=== PATIENT | female | born 1940 | race Caucasian/White ===

== ENCOUNTER → 2020-10-15 | Outpatient (CLI) | payer MEDICARE, OTHER | LOC: M.RAD 15:30 | PROVIDERS: ATTEND Nurse Practitioner Family | DX: M85.80 Other specified disorders of bone density and structure, unspecified site (principal); M81.0 Age-related osteoporosis without current pathological fracture; Z78.0 Asymptomatic menopausal state ==

== ENCOUNTER → 2020-11-30 | Outpatient (CLI) | payer MEDICARE, OTHER ==
[2020-11-30 07:26] LABS: INR 1.2; PROTIME 12.8 Seconds (9.20-11.50)
== END ==
LOC: M.LAB 05:28
PROVIDERS: ATTEND Anesthesiology
DX: R79.1 Abnormal coagulation profile (principal)

== ENCOUNTER 2021-01-14 17:55 | Inpatient (IN) | payer MEDICARE, OTHER ==
[~2021-01-14] VITALS: Ht 162.6 cm; Wt 119.6 kg
[2021-01-14 18:04] VITALS: BP 155/81
[2021-01-14] MEDS ORDERED: SORINE 80 MG TA80 MG PO (18:09)
[2021-01-14] MEDS ORDERED: WARFARIN SODIUM5 MG PO (18:10)
[2021-01-14] MEDS ORDERED: DEPRESSION MED (18:10)
[2021-01-14 18:47] LABS: ABSOLUTE BASOPHILS 0.1 thou/uL (0.0-0.2); ABSOLUTE EOSINOPHILS 0.1 thou/uL (0.0-0.7); ABSOLUTE LYMPHOCYTES 1.2 thou/uL (0.8-5.3); ABSOLUTE NEUTROPHILS 11.8 thou/uL (1.6-8.1); BASOPHILS 0.4 %; EOSINOPHILS 0.8 %; HEMATOCRIT 36.9 % (37.0-47.0); HEMOGLOBIN 12.6 gm/dL (12.0-15.0); LYMPHOCYTES 8.7 %; MCH 34.5 pg (26.0-34.0); MCV 101.5 fL (80.0-100.0); MONOCYTES 7.1 %; MPV 7.5 fl. (7.2-11.1); NUCLEATED RBCS 0 /100WBC; PLATELET COUNT* 200 thou/uL (150-400); RBC 3.64 mil/uL (4.20-5.00); WBC 14.2 thou/uL (4.0-11.0)
[2021-01-14 18:53] LABS: CALCIUM 8.4 mg/dL (8.5-10.1); CREATININE 0.7 mg/dL (0.6-1.3)
[2021-01-14 18:58] LABS: ALBUMIN 2.8 g/dL (3.4-5.0); TOTAL BILIRUBIN 0.9 mg/dL (<0.1-1.0); TOTAL PROTEIN 5.9 g/dL (6.4-8.2)
[2021-01-14 21:00] VITALS: BP 144/89; BP 145/80
--- NOTE | 2021-01-14 23:10 | NUR ---
2054 ALERT AND ORIENTED X 4 FEMALE PATIENT TO ROOM 232 BY CART FROM ER IN STABLE CONDITION. ADMISSION ROUTINES IN PROGRESS. FALL PRECAUTIONS IN PLACE. CONTINUE TO MONITOR.
[2021-01-15] VITALS: BP 126/67
[2021-01-15 04:00] VITALS: BP 123/70
--- NOTE | 2021-01-15 05:54 | NUR ---
PATIENT HAS REMAINED ALERT AND ORIENTED X 4 THROUGHOUT THE SHIFT AND RESTING QUIETLY ON HOURLY ROUNDS. UP TO BR OR BSC WITH MIN ASSIST OF ONE AND WALKER. ANTIBIOTICS PER ORDER. VITAL SIGNS STABLE. FALL PRECAUTIONS IN PLACE. CONTINUE TO MONITOR.
[2021-01-15 06:03] LABS: INR 3.7; PROTIME 36.5 Seconds (9.20-11.50)
[2021-01-15 08:00] VITALS: BP 149/87
[2021-01-15 08:23] LABS: ABSOLUTE BASOPHILS 0.1 thou/uL (0.0-0.2); ABSOLUTE EOSINOPHILS 0.1 thou/uL (0.0-0.7); ABSOLUTE LYMPHOCYTES 1.3 thou/uL (0.8-5.3); ABSOLUTE MONOCYTES 0.9 thou/uL (0.0-1.2); ABSOLUTE NEUTROPHILS 8.4 thou/uL (1.6-8.1); BASOPHILS 0.5 %; HEMATOCRIT 35.9 % (37.0-47.0); HEMOGLOBIN 12.2 gm/dL (12.0-15.0); MCH 34.5 pg (26.0-34.0); MCHC 33.9 g/dL (28.0-37.0); MCV 101.9 fL (80.0-100.0); MONOCYTES 8.2 %; MPV 8.1 fl. (7.2-11.1); NUCLEATED RBCS 0 /100WBC; PLATELET COUNT* 187 thou/uL (150-400); POLYS 78.3 %; RBC 3.53 mil/uL (4.20-5.00); RDW-CV 14.4 % (10.5-14.5); WBC 10.7 thou/uL (4.0-11.0)
[2021-01-15 08:36] LABS: ALBUMIN 2.6 g/dL (3.4-5.0); CALCIUM 8.2 mg/dL (8.5-10.1); CREATININE 0.8 mg/dL (0.6-1.3); POTASSIUM 3.6 mmol/L (3.5-5.1); TOTAL BILIRUBIN 0.9 mg/dL (<0.1-1.0); TOTAL PROTEIN 5.6 g/dL (6.4-8.2)
--- NOTE | 2021-01-15 10:54 | EKG ---
[place] [address] ELECTROCARDIOGRAM REPORT Name: AUDREY SANTA Room: [address] IN ..#: [id number] Admission: 01/14/21 Attend Phys: Kostas Davila, Discharge: Date of : 40 Date of Service: 01/14/21 1825 Report #: [id number] THIS REPORT FOR: //name// [facility] ED Test Date: 2021-01-14 Test Time: 18:25:43 Pat Name: AUDREY WALTERSANTA Department: Room: [facility] Gender: F [employer] Presser: DIONISIO : 1940 Requested By: Randa Chance Order Number: [id number] MD: Oh Khalil Measurements Intervals [place] Rate: 90 P: [place]: QRS: -36 QRSD: 111 T: 41 QT: 406 QTc: 497 Interpretive Statements Atrial fibrillation Left axis deviation Minor intraventricular conduction delay Anteroseptal infarct suggested, age indeterminate No previous ECG available for comparison Electronically Signed On 01-15-2021 10:54:18 CDT by Oh Khalil [email or web address] <ELECTRONICALLY SIGNED> By: Oh Khalil MD, [facility] 01/15/21 1054 1825 1825 Oh Khalil MD, [facility] /EPI
[2021-01-15 11:30] VITALS: BP 125/71
--- NOTE | 2021-01-15 14:21 | 2DMMODE ---
[place] [address] 2 D/M-MODE ECHOCARDIOGRAM Name: AUDREY SANTA Room: [address] IN [facility]#: [id number] Admission: 01/14/21 Attend Phys: Kostas Davila, Discharge: Date of : 40 Date of Service: 01/15/21 1421 Report #: [id number] THIS REPORT FOR: cc: V[place] NP, KATHERINE J. NP Holkins, John M. MD [facility] ~ APPROVED REPORT Study performed: 01/15/2021 13:07:21 EXAM: Comprehensive 2D, Doppler, and color-flow Echocardiogram Patient Location: In-Patient Room #: On license of [facility] Status: routine BSA: 2.20 HR: 106 bpm BP: 125/71 mmHg Rhythm: Atrial Fibrillation Other Information Study Quality: Good Indications Congestive Heart Failure Atrial Fibrillation 2D Dimensions IVSd: 9.63 (7-11mm) LVOT Diam: 21.05 (18-24mm) LVDd: 46.41 mm PWd: 9.26 (7-11mm) Ascending Ao: 32.85 (22-36mm) LVDs: 31.84 (25-40mm) Aortic Root: 34.24 mm Volumes Left Atrial Volume (Systole) LA ESV Index: 46.00 mL/m2 Aortic Valve AoV Peak Shawn.: 1.37 m/s AO Peak Gr.: 7.54 mmHg LVOT Max P.96 mmHg AO Mean Gr.: 4.03 mmHg LVOT Mean P.53 mmHg LVOT Max V: 0.86 m/s AO V2 VTI: 24.81 cm LVOT Mean V: 0.58 m/s JOSÉ (VTI): 2.34 cm2 LVOT V1 VTI: 16.66 [place] [address] 2 D/M-MODE ECHOCARDIOGRAM Name: AUDREY SANTA Room: [address] IN ..#: [id number] Admission: 01/14/21 Attend Phys: Kostas Davila, Discharge: Date of : 40 Date of Service: 01/15/21 1421 Report #: [id number] [place]: 2.54 m/s2 AI PHT: 506.26 ms TDI Medial E' Shawn.: 0.17 m/s Lateral E' Shawn.: 0.14 m/s Pulmonary Valve PV Peak Shawn.: 0.66 m/s PV Peak Gr.: 1.74 mmHg Tricuspid Valve RAP Estimate: 5.00 mmHg TR Peak Gr.: 34.55 mmHg RVSP: 39.00 mmHg PA Pressure: 39.00 mmHg Left Ventricle The left ventricle is normal size. There is normal LV segmental wall motion. There is normal left ventricular wall thickness. Left ventricular systolic function is normal. The left ventricular ejection fraction is within the normal range. LVEF is 50-55%. This study is not technically sufficient to allow evaluation of the LV diastolic function due to atrial fibrillation. Right Ventricle The right ventricle is normal size. The right ventricular systolic function is normal. Atria Left atrium is mildly dilated. The right atrium size is normal. Aortic Valve Mild aortic valve sclerosis. Mild to moderate aortic regurgitation. There is no aortic valvular stenosis. Mitral Valve The mitral valve is normal in structure. Mild mitral regurgitation. No evidence of mitral valve stenosis. Tricuspid Valve The tricuspid valve is normal in structure. Mild tricuspid regurgitation. Mild pulmonary hypertension. Pulmonic Valve The pulmonary valve is normal in structure. There is no pulmonic [place] [address] 2 D/M-MODE ECHOCARDIOGRAM Name: AUDREY SANTA Room: [address] IN [facility]#: [id number] Admission: 01/14/21 Attend Phys: Kostas Davila, Discharge: Date of : 40 Date of Service: 01/15/21 1421 Report #: [id number] Great Vessels The aortic root is normal in size. IVC is normal in size and collapses >50% with inspiration. Pericardium There is no pericardial effusion. <Conclusion> The left ventricle is normal size. There is normal left ventricular wall thickness. Left ventricular systolic function is normal. The left ventricular ejection fraction is within the normal range. LVEF is 50-55%. This study is not technically sufficient to allow evaluation of the LV diastolic function due to atrial fibrillation. The right ventricle is normal size. Left atrium is mildly dilated. The right atrium size is normal. Mild aortic valve sclerosis. Mild to moderate aortic regurgitation. There is no aortic valvular stenosis. The mitral valve is normal in structure. Mild mitral regurgitation. The tricuspid valve is normal in structure. Mild tricuspid regurgitation. Mild pulmonary hypertension. IVC is normal in size and collapses >50% with inspiration. There is no pericardial effusion. There is normal LV segmental wall motion. <ELECTRONICALLY SIGNED> By: Oh Khalil MD, FACC 01/15/21 142 [id number] 142 Oh Khalil MD, FACC /INF
--- NOTE | 2021-01-15 15:48 | NUR ---
CM ASSESSMENT: CM ATTEMPTED TO SPEAK TO THE PT TO DISCUSS CM ASSESSMENT. PT ALERT TO SELF. CM SPOKE TO PT'S DTR WHO INFORMS THAT THE PT IS 'VERY FORGETFUL, AND HAS THE BEGINING STAGES OF DEMENTIA'. PT RESIDES AT HOME WITH HER DTR AND RENEE. PT USES A WALKER FOR MOBILITY. PT HAS 0 HX OF HH OR SNF. PT'S DTR INFORMS THAT SHE PLANS FOR THE PT TO RETURN HOME AT D/C AND SHE DECLINED HH AT THIS TIME. CM WILL REMAIN AVAILABLE TO ASSIST AND FOLLOW NEEDED.
[2021-01-15 20:00] VITALS: BP 130/40
[2021-01-16 04:00] VITALS: BP 128/84
[2021-01-16 08:00] VITALS: BP 131/66
[2021-01-16 08:27] LABS: ABSOLUTE EOSINOPHILS 0.1 thou/uL (0.0-0.7); ABSOLUTE LYMPHOCYTES 1.3 thou/uL (0.8-5.3); ABSOLUTE MONOCYTES 0.7 thou/uL (0.0-1.2); BASOPHILS 0.4 %; EOSINOPHILS 1.5 %; HEMATOCRIT 35.5 % (37.0-47.0); HEMOGLOBIN 12.2 gm/dL (12.0-15.0); LYMPHOCYTES 14.5 %; MCH 34.5 pg (26.0-34.0); MCHC 34.3 g/dL (28.0-37.0); MCV 100.4 fL (80.0-100.0); MONOCYTES 7.9 %; MPV 7.6 fl. (7.2-11.1); NUCLEATED RBCS 0 /100WBC; PLATELET COUNT* 186 thou/uL (150-400); POLYS 75.7 %; RBC 3.53 mil/uL (4.20-5.00); RDW-CV 13.9 % (10.5-14.5); WBC 9.2 thou/uL (4.0-11.0)
[2021-01-16 08:32] LABS: INR 3.2; PROTIME 31.4 Seconds (9.20-11.50)
[2021-01-16 08:37] LABS: CALCIUM 8.1 mg/dL (8.5-10.1); CREATININE 0.7 mg/dL (0.6-1.3); POTASSIUM 3.6 mmol/L (3.5-5.1)
[2021-01-16 16:00] VITALS: BP 124/88
[2021-01-16 20:00] VITALS: BP 136/72
[2021-01-17 04:00] VITALS: BP 118/72
[2021-01-17] MEDS ORDERED: CEFDINIR300 MG PO (09:47)
[2021-01-17 10:52] LABS: INR 2.1
[2021-01-17 11:09] VITALS: BP 118/72
[2021-01-17 11:11] VITALS: BP 118/72
--- NOTE | 2021-01-17 12:18 | NUR ---
PT A&OX4 VSS. PT UP SBA, GAIT STEADY. EDEMA OBSERVED TO EXTREMETIES UPON ASSUMING CARE OF PT THIS AM. PT REMAINS ON ROOM AIR. IV TO RAC PATENT, DRESSING C/D/I. ACCESS DC'D PRIOR TO PT LEAVING UNIT WITH FAMILY. PT DRESSED WITH ASSISTANCE FROM HER DGTR. PT LEFT UNIT IN WHEELCHAIR WITH NURSING STAFF. PT AND DGTR STATE UNDERSTANDING OF DC INSTRUCTIONS AND FOLLOW UP INSTRUCTIONS WELL RX.
[2021-01-17 12:27] VITALS: BP 118/72
== END 2021-01-17 12:27 | disposition home or self-care (01) | DRG 871 ==
LOC: M.ERS 17:55 → M.TBA-ER 19:10 → M.2W 19:10 → M.ORTHSURG 01-17 08:07
PROVIDERS: Physician Assistant; ADMIT Internal Medicine; ATTEND Internal Medicine
DX: A41.9 Sepsis, unspecified organism (principal); I50.33 Acute on chronic diastolic (congestive) heart failure; L03.116 Cellulitis of left lower limb; I48.91 Unspecified atrial fibrillation; Z20.822 Contact with and (suspected) exposure to COVID-19; Z79.01 Long term (current) use of anticoagulants; Z79.899 Other long term (current) drug therapy; Z88.8 Allergy status to other drugs, medicaments and biological substances; Z72.89 Other problems related to lifestyle; Z91.14 Patient's other noncompliance with medication regimen

== ENCOUNTER → 2021-03-26 | Outpatient (CLI) | payer MEDICARE, OTHER ==
[~2021-03-26] MED LIST: CEFDINIR300 MG PO; DEPRESSION MED; SORINE 80 MG TA80 MG PO; WARFARIN SODIUM5 MG PO
== END ==
LOC: M.ULTRA 03-09 09:30
PROVIDERS: ATTEND Nurse Practitioner Family
DX: M17.11 Unilateral primary osteoarthritis, right knee (principal); M25.461 Effusion, right knee